=== PATIENT | male | born 1960 | race Caucasian/White ===

== ENCOUNTER 2016-09-03 18:09 | Inpatient (IN) | payer OTHER ==
[2016-09-03 18:40] VITALS: BMI 28.3
--- NOTE | 2016-09-03 19:13 | HP ---
CIWA Score - CIWA Score Nausea/Vomitin-Mild Nausea/No Vomiting Muscle Tremors: 4-Moderate,w/Arms Extend Anxiety: 4-Mod. Anxious/Guarded Agitation: 4-Moderately Restless Paroxysmal Sweats: 1-Minimal Palms Moist Orientation: 1-Uncertain about Date Tacttile Disturbances: 0-None Auditory Disturbances: 0-None Visual Disturbances: 0-None Headache: 1-Very Mild CIWA-Ar Total Score: 16 Admission ROS BHS - HPI Chief Complaint: WITHDRAWAL SX Allergies/Adverse Reactions: Allergies Allergy/AdvReac Type Severity Reaction Status Date / Time No Known Allergies Allergy Verified 09/03/16 19:22 History of Present Illness: 56 YEARS OLD MALE WITH LONG HISTORY OF ALCOHOL, NICOTINE HYPERTENSION DIABETES II SEIZURE AND DEPRESSION HISTORY OF SUICIDAL IDEATION IS ADMITTED TO DETOX Exam Limitations: No Limitations - Ebola screening Have you traveled outside of the country in the last 21 days: No Have you had contact with anyone from an Ebola affected area: No Have you been sick,other than usual withdrawal symptoms: No Do you have a fever: No - Review of Systems Constitutional: Chills, Changes in sleep, Weight Stable EENT: reports: No Symptoms Reported Respiratory: reports: Cough, SOB with Exertion Cardiac: reports: No Symptoms Reported GI: reports: Nausea, Poor Fluid Intake, Abdominal cramping : reports: No Symptoms Reported Musculoskeletal: reports: Joint Pain (RIGHT LEG) Integumentary: reports: No Symptoms Reported Neuro: reports: Seizure, Tremors Endocrine: reports: No Symptoms Reported Hematology: reports: No Symptoms Reported Psychiatric: reports: Judgement Intact, Depressed Other Systems: Reviewed and Negative Patient History - Patient Medical History Hx Anemia: No Hx Asthma: No Hx Chronic Obstructive Pulmonary Disease (COPD): No Hx Cancer: No Hx Cardiac Disorders: No Hx Congestive Heart Failure: No Hx Hypertension: Yes Hx Hypercholesterolemia: No Hx Pacemaker: No HX Cerebrovascular Accident: No Hx Seizures: Yes Hx Dementia: No Hx Diabetes: Yes Hx Gastrointestinal Disorders: No Hx Liver Disease: No Hx Genitourinary Disorders: No Hx Sexually Transmitted Disorders: No Hx Renal Disease (ESRD): No Hx Thyroid Disease: No Hx Human Immunodeficiency Virus (HIV): No Hx Hepatitis C: No Hx Depression: Yes Hx Suicide Attempt: Yes (2 WEEKS AGO, [place]) Hx Bipolar Disorder: No Hx Schizophrenia: No - Patient Surgical History Past Surgical History: Yes Hx Neurologic Surgery: No Hx Cataract Extraction: No Hx Cardiac Surgery: No Hx Lung Surgery: No Hx Breast Surgery: No Hx Breast Biopsy: No Hx Abdominal Surgery: Yes (LEFT HERNIA 1985) Hx Appendectomy: No Hx Cholecystectomy: No Hx Genitourinary Surgery: No Hx Orthopedic Surgery: Yes (1994 HANDS TENDEN CUT) Anesthesia Reaction: No - PPD History Previous Implant?: Yes Documented Results: Negative w/o proof Implanted On Prior [facility] Admission?: No PPD to be Administered?: Yes - Smoking Cessation Smoking history: Current every day smoker Have you smoked in the past 12 months: Yes Aproximately how many cigarettes per day: 10 Cigars Per Day: 0 Hx Chewing Tobacco Use: No Initiated information on smoking cessation: Yes 'Breaking Loose' booklet given: 09/03/16 - Substance & Tx. History Hx Alcohol Use: Yes Hx Substance Use: No Substance Use Type: Alcohol Hx Substance Use Treatment: Yes - Substances Abused Alcohol Route: Oral Frequency: Daily Amount used: [place] Age of first use: 42 Date of Last Use: 09/03/16 Family Disease History - Family Disease History Family Disease History: Heart Disease: Father (), CA: Mother () , Other: Father, Mother, Brother (HIV ), Sister (NO CONTACT) Admission Physical Exam BHS - Vital Signs Vital Signs: Vital Signs - 24 hr 09/03/16 18:29 Temperature 97.9 F Pulse Rate 95 H Respiratory 20 Rate Blood Pressure 152/67 - Physical General Appearance: Yes: Appropriately Dressed, Mild Distress, Alcohol on Breath , Tremorous, Irritable, Sweating, Anxious HEENTM: Yes: Hearing grossly Normal, Normal ENT Inspection, Normocephalic, Normal Voice Respiratory: Yes: Chest Non-Tender, No Respiratory Distress, No Accessory Muscle Use, Wheezing, Expiration Neck: Yes: Supple, Trachea in good position Breast: Yes: Breasts Symetrical Cardiology: Yes: Regular Rhythm, S1, S2, Tachycardia Abdominal: Yes: Non Tender, Soft Genitourinary: Yes: Within Normal Limits Back: Yes: Normal Inspection Musculoskeletal: Yes: Gait Steady, Back pain, Joint swelling, Muscle Pain ( RIGHT LEG) Extremities: Yes: Normal Inspection, Normal Range of Motion, Non-Tender, Tremors Neurological: Yes: Alert, Motor Strength 5/5, Normal Response, Depressed Affect Integumentary: Yes: Warm Lymphatic: Yes: Within Normal Limits - Diagnostic (1) Alcohol dependence with uncomplicated withdrawal Current Visit: Yes Status: Acute (2) Hypertension Current Visit: Yes Status: Chronic Qualifiers: Hypertension type: essential hypertension Qualified Code(s): I10 - Essential (primary) hypertension (3) Diabetes mellitus type II, controlled Current Visit: Yes Status: Chronic Qualifiers: Diabetes mellitus complication status: without complication Diabetes mellitus joint terminal attack controller insulin use: without custodial use Qualified Code(s): E11.9 - Type 2 diabetes mellitus without complications (4) Seizure Current Visit: Yes Status: Chronic (5) Brain tumor Current Visit: Yes Status: Chronic (6) Depression (emotion) Current Visit: Yes Status: Suspected Qualifiers: Depression Type: dysthymia Qualified Code(s): F34.1 - Dysthymic disorder Cleared for Admission BHS - Detox or Rehab [facility] Level of Care: Medically Managed Detox Regimen/Protocol: Librium S Breath Alcohol Content Breath Alcohol Content: 0.042
[2016-09-03] MEDS ORDERED: LOPERAMIDE HCL 2 MG CAPSULE PO PRN (19:36)
[2016-09-03] MEDS ORDERED: MAGNESIUM HYDROX 2400MG/30ML ORAL SUSPENSION 30 ML CUP PO PRN (19:36)
[2016-09-03] MEDS ORDERED: NICOTINE POLACRILEX 2 MG GUM BC PRN (19:36)
[2016-09-03] MEDS ORDERED: chlordiazePOXIDE HCL 25 MG CAPSULE PO PRN (19:36)
[2016-09-03] MEDS ORDERED: hydrOXYzine PAMOATE 50 MG CAPSULE (FP) PO PRN (19:36)
[2016-09-03] MEDS ORDERED: P-EPHED 60MG/TRIPROLIDI 2.5MG TABLET PO PRN (19:36)
[2016-09-03] MEDS ORDERED: guaiFENesin/D-METHORPHAN HB 10 ML UNIT-DOSE CUPS PO PRN (19:36)
[2016-09-03] MEDS ORDERED: chlordiazePOXIDE HCL 25 MG CAPSULE PO ONE (19:36)
[2016-09-03] MEDS ORDERED: ACETAMINOPHEN 325 MG TABLET (FP) PO PRN (19:36)
[2016-09-03] MEDS ORDERED: MAG HYDROX/AL HYDROX/SIMETH 30 ML UNIT-DOSE CUP PO PRN (19:36)
[2016-09-03] MEDS ORDERED: MENTHOL/PHENOL 1 EACH UD MM PRN (19:36)
[2016-09-03] MEDS ORDERED: IBUPROFEN 400 MG TABLET (FP) PO PRN (19:36)
[2016-09-03] MEDS ORDERED: MAGNESIUM CITRATE 300 ML BOTTLE PO PRN (19:36)
[2016-09-03] MEDS ORDERED: cloNIDine HCL 0.1 MG TABLET PO PRN (19:42)
[2016-09-03] MEDS: amLODIPine BESYLATE 5 MG TABLET (FP) PO SCH (21:03)
[2016-09-03] MEDS: THIAMINE HCL 100 MG TABLET (FP) PO SCH (22:05)
[2016-09-03] MEDS: chlordiazePOXIDE HCL 25 MG CAPSULE PO SCH (22:05)
[2016-09-03] MEDS: diphenhydrAMINE HCL 50 MG CAPSULE PO PRN (22:06)
[2016-09-03] MEDS: LABETALOL HCL 200 MG TABLET (FP) PO SCH (22:06)
[2016-09-04] MEDS: chlordiazePOXIDE HCL 25 MG CAPSULE PO SCH ×4 (05:38→22:02)
--- NOTE | 2016-09-04 09:35 | PN ---
S CIWA - CIWA Score Nausea/Vomitin-Mild Nausea/No Vomiting Muscle Tremors: 5 Anxiety: 4-Mod. Anxious/Guarded Agitation: 4-Moderately Restless Paroxysmal Sweats: 3 Orientation: 0-Oriented Tacttile Disturbances: 1-Very Mild Itch/Numbness Auditory Disturbances: 0-None Visual Disturbances: 0-None Headache: 0-None Present CIWA-Ar Total Score: 18 BHS Progress Note (SOAP) Subjective: Sweating,interrupted sleep,restless,gross tremors,anxiety. Objective: 09/04/16 09:34 Vital Signs - 8 hr 09/04/16 09/04/16 09/04/16 03:19 06:07 09:18 Temperature 98.3 F 96.1 F L Pulse Rate 100 H 82 84 Respiratory 18 18 Rate Blood Pressure 120/72 140/75 Assessment: 09/04/16 09:34 Withdrawal sx. Plan: Continue detox
[2016-09-04 10:02] LABS: CALCIUM 8.6 mg/dL (8.5-10.1)
[2016-09-04 10:06] LABS: ALBUMIN 3.5 g/dl (3.4-5.0); ALK PHOS 78 U/L (45-117); BILIRUBIN,TOTAL 0.8 mg/dL (0.2-1.0); COCKROFT - GAULT 162.53; CREATININE 0.7 mg/dL (0.7-1.3); GLUCOSE,RANDOM 155 mg/dL (74-106); SGOT/AST 51 U/L (15-37); SGPT/ALT 52 U/L (12-78); TOT PROT 6.4 g/dl (6.4-8.2)
[2016-09-04] MEDS: PRENATAL VITAMINS W/ FOLIC ACID TABLET (FP) PO SCH (10:07)
[2016-09-04] MEDS: amLODIPine BESYLATE 5 MG TABLET (FP) PO SCH (10:07)
[2016-09-04] MEDS: HYDROCHLOROTHIAZIDE 12.5 MG CAPSULE (FP) PO SCH (10:07)
[2016-09-04] MEDS: NICOTINE 14 MG/24 HOURS TOPICAL PATCH TD SCH (10:08)
--- NOTE | 2016-09-04 10:21 | CONSULT ---
[facility] Psychiatric Consult - Data Date of interview: 09/04/16 Admission source: [facility] Identifying data: Mr thurman is a 56 years old male, father of 3 children, unemployed, living with a friend seeking detox treatment for alcohol Substance Abuse History: Reports that he started drinking alcohol at age 42, consumes one pint of vodka daily. Last drink on 09/03/16. Smokes 10 cigarettes daily Medical History: Significant for HTN, type 2 DM, Alcohol-related seizure, Brain aneurysm diagnosed in 2010 and surgery for repair of tendon middle finger of right hand Physical/Sexual Abuse/Trauma History: Denies history of emotional, physical or sexual abuse as well as DV relationship Additional Comment: Reports history of 2-3 previous misdemeanor arrests for drinking on public Mental Status Exam - Mental Status Exam Alert and Oriented to: Time, Place ([facility]), Person Cognitive Function: Fair Patient Appearance: Disheveled Mood: Depressed Affect: Appropriate Patient Behavior: Cooperative Speech Pattern: Clear Voice Loudness: Normal Thought Process: Intact Hallucinations: Denies Suicidal Ideation: Denies Homicidal Ideation: Denies Insight/Judgement: Poor Sleep: Poorly Appetite: Good Muscle strength/Tone: Normal Gait/Station: Normal Psychiatric Findings - Problem List ([place] 1, 2,3) (1) Alcohol-induced mood disorder Current Visit: Yes Status: Acute (2) Alcohol-induced sleep disorder Current Visit: Yes Status: Acute (3) Alcohol dependence with uncomplicated withdrawal Current Visit: Yes Status: Acute (4) Nicotine dependence Current Visit: Yes Status: Acute (5) Brain tumor Current Visit: Yes Status: Chronic (6) Diabetes mellitus type II, controlled Current Visit: Yes Status: Chronic Qualifiers: Diabetes mellitus complication status: without complication Diabetes mellitus fdc insulin use: without fdc use Qualified Code(s): E11.9 - Type 2 diabetes mellitus without complications (7) Hypertension Current Visit: Yes Status: Chronic Qualifiers: Hypertension type: essential hypertension Qualified Code(s): I10 - Essential (primary) hypertension (8) Seizure Current Visit: Yes Status: Chronic - Initial Treatment Plan Initial Treatment Plan: 1) Start Ambuen 10 mg po HS prn for insomnia. Benefits vs risks of medication discussed with patient and he agreed to try it. 2) Continue inpatient detoxification
[2016-09-04 10:27] LABS: MCH 34.3 pg (25.7-33.7); MCHC 34.2 g/dl (32.0-35.9); MEAN CELL VOLUME 100.2 fl (80-96); MEAN PLT VOLUME 7.1 fl (7.5-11.1); PLATELET COUNT 144 K/MM3 (134-434); RDW 13.3 % (11.9-15.9); WHITE BLOOD COUNT 6.1 K/mm3 (4.0-10.0)
[2016-09-04] MEDS: LABETALOL HCL 200 MG TABLET (FP) PO SCH ×2 (11:24→22:02)
--- NOTE | 2016-09-04 11:37 | EKG ---
Test Reason : Blood Pressure : / mmHG Vent. Rate : 092 BPM Atrial Rate : 092 BPM P-R Int : 152 ms QRS Dur : 094 ms QT Int : 362 ms P-R-T Axes : 042 034 051 degrees QTc Int : 447 ms POOR DATA QUALITY, INTERPRETATION MAY BE ADVERSELY AFFECTED NORMAL SINUS RHYTHM NORMAL ECG NO PREVIOUS ECGS AVAILABLE Confirmed by ENA SOOD MD ([id number]) on 09/04/2016 11:37:04 AM Referred By: Mahesh Ibrahim Confirmed By:ENA SOOD MD
[2016-09-04 13:32] LABS: ANION GAP 9 (8-16); CO2 30 mmol/L (21-32)
[2016-09-04] MEDS ORDERED: chlordiazePOXIDE HCL 25 MG CAPSULE PO ONE (14:00)
[2016-09-04 15:22] LABS: URINE APPEARANCE CLEAR; URINE BILIRUBIN NEGATIVE (NEGATIVE); URINE BLOOD NEGATIVE (NEGATIVE); URINE COLOR AMBER; URINE GLUCOSE (UA) 3+ (NEGATIVE); URINE KETONE NEGATIVE (NEGATIVE); URINE LEUK ESTERASE NEGATIVE (NEGATIVE); URINE NITRITE NEGATIVE (NEGATIVE); URINE UROBILINOGEN 4.0 E.U/dl E.U./dl (0.2-1.0)
[2016-09-04 15:53] LABS: URINE PROTEIN 1+ (NEGATIVE)
[2016-09-04 16:09] LABS: URINE MUCUS MANY; URINE RBC 1 /hpf (0-3); URINE WBC 5 /hpf (3-5)
[2016-09-04] MEDS ORDERED: ZOLPIDEM TARTRATE 10 MG TABLET (PARK CARE ONLY) PO PRN (22:00)
[2016-09-04] MEDS: THIAMINE HCL 100 MG TABLET (FP) PO SCH (22:02)
[2016-09-05] MEDS: chlordiazePOXIDE HCL 25 MG CAPSULE PO SCH ×3 (05:25→17:21)
[2016-09-05] MEDS: PRENATAL VITAMINS W/ FOLIC ACID TABLET (FP) PO SCH (10:07)
[2016-09-05] MEDS: HYDROCHLOROTHIAZIDE 12.5 MG CAPSULE (FP) PO SCH (10:07)
[2016-09-05] MEDS: LABETALOL HCL 200 MG TABLET (FP) PO SCH ×2 (10:07→22:10)
[2016-09-05] MEDS: amLODIPine BESYLATE 5 MG TABLET (FP) PO SCH (10:07)
[2016-09-05] MEDS: NICOTINE 14 MG/24 HOURS TOPICAL PATCH TD SCH (10:07)
--- NOTE | 2016-09-05 11:25 | PN ---
S CIWA - CIWA Score Nausea/Vomitin-Mild Nausea/No Vomiting Muscle Tremors: 4-Moderate,w/Arms Extend Anxiety: 4-Mod. Anxious/Guarded Agitation: 4-Moderately Restless Paroxysmal Sweats: 3 Orientation: 0-Oriented Tacttile Disturbances: 0-None Auditory Disturbances: 0-None Visual Disturbances: 0-None Headache: 0-None Present CIWA-Ar Total Score: 16 BHS Progress Note (SOAP) Subjective: Sweating,anxiety,tremors,interrupted sleep,restless Objective: 09/05/16 11:21 Vital Signs - 8 hr 09/05/16 09/05/16 09/05/16 03:29 06:10 09:35 Temperature 97 F L 96.8 F L Pulse Rate 80 84 Respiratory 18 18 18 Rate Blood Pressure 131/73 123/80 Laboratory Tests 09/04/16 09/04/16 09/04/16 07:00 07:00 07:00 WBC 6.1 RBC 3.55 L Hgb 12.2 Hct 35.6 MCV 100.2 H MCHC 34.2 RDW 13.3 Plt Count 144 MPV 7.1 L Sodium 141 Potassium 3.5 Chloride 102 Carbon Dioxide 30 Anion Gap 9 BUN 12 Creatinine 0.7 Creat Clearance w eGFR > 60 Random Glucose 155 H Calcium 8.6 Total Bilirubin 0.8 AST 51 H ALT 52 Alkaline Phosphatase 78 Total Protein 6.4 Albumin 3.5 Urine Color Urine Appearance Urine pH Ur Specific [place] Urine Protein Urine Glucose (UA) Urine Ketones Urine Blood Urine Nitrite Urine Bilirubin Urine Urobilinogen Ur Leukocyte Esterase Urine RBC Urine WBC Urine Mucus RPR Titer Nonreactive 09/04/16 09:50 WBC RBC Hgb Hct MCV MCHC RDW Plt Count MPV Sodium Potassium Chloride Carbon Dioxide Anion Gap BUN Creatinine Creat Clearance w eGFR Random Glucose Calcium Total Bilirubin AST ALT Alkaline Phosphatase Total Protein Albumin Urine Color [place] Urine Appearance Clear Urine pH 6.0 Ur Specific [place] 1.020 Urine Protein 1+ H Urine Glucose (UA) 3+ H Urine Ketones Negative Urine Blood Negative Urine Nitrite Negative Urine Bilirubin Negative Urine Urobilinogen 4.0 e.u/dl Ur Leukocyte Esterase Negative Urine RBC 1 Urine WBC 5 Urine Mucus Many RPR Titer labs noted,no need to repeat u/a Assessment: 09/05/16 11:25 Withdrawal sx. Plan: Continue detox
[2016-09-05] MEDS: diphenhydrAMINE HCL 50 MG CAPSULE PO PRN (22:11)
[2016-09-05] MEDS: THIAMINE HCL 100 MG TABLET (FP) PO SCH (22:11)
[2016-09-05] MEDS: chlordiazePOXIDE 5 MG CAPSULE PO SCH (22:11)
[2016-09-06] MEDS: chlordiazePOXIDE 5 MG CAPSULE PO SCH ×3 (06:41→17:45)
[2016-09-06] MEDS: LABETALOL HCL 200 MG TABLET (FP) PO SCH ×2 (10:02→22:03)
[2016-09-06] MEDS: PRENATAL VITAMINS W/ FOLIC ACID TABLET (FP) PO SCH (10:02)
[2016-09-06] MEDS: amLODIPine BESYLATE 5 MG TABLET (FP) PO SCH (10:02)
[2016-09-06] MEDS: HYDROCHLOROTHIAZIDE 12.5 MG CAPSULE (FP) PO SCH (10:02)
[2016-09-06] MEDS: NICOTINE 14 MG/24 HOURS TOPICAL PATCH TD SCH (10:02)
[2016-09-06] MEDS ORDERED: IBUPROFEN 600 MG TABLET (FP) PO PRN (12:44)
[2016-09-06] MEDS: METHYL SALICYLATE/MENTHOL OINT 30 GM TUBE TP SCH ×2 (14:47→22:02)
--- NOTE | 2016-09-06 15:00 | PN ---
BHS Progress Note (SOAP) Subjective: Interrupted Sleep, Tremors, Sweating. Objective: PT. A & O X 2 (DISORIENTED ABOUT DAY/DATE). PT. OBSERVED AMBULATING ON UNIT. 09/06/16 14:57 Vital Signs Temperature 97.3 F L 09/06/16 12:58 Pulse Rate 81 09/06/16 12:58 Respiratory Rate 18 09/06/16 12:58 Blood Pressure 114/66 09/06/16 12:58 O2 Sat by Pulse Oximetry (%) Laboratory Last Values WBC 6.1 K/mm3 (4.0-10.0) 09/04/16 07:00 RBC 3.55 M/mm3 (4.00-5.60) L 09/04/16 07:00 Hgb 12.2 GM/dL (11.7-16.9) 09/04/16 07:00 Hct 35.6 % (35.4-49) 09/04/16 07:00 MCV 100.2 fl (80-96) H 09/04/16 07:00 MCHC 34.2 g/dl (32.0-35.9) 09/04/16 07:00 RDW 13.3 % (11.9-15.9) 09/04/16 07:00 Plt Count 144 K/MM3 (134-434) 09/04/16 07:00 MPV 7.1 fl (7.5-11.1) L 09/04/16 07:00 Sodium 141 mmol/L (136-145) 09/04/16 07:00 Potassium 3.5 mmol/L (3.5-5.1) 09/04/16 07:00 Chloride 102 mmol/L (98-107) 09/04/16 07:00 Carbon Dioxide 30 mmol/L (21-32) 09/04/16 07:00 Anion Gap 9 (8-16) 09/04/16 07:00 BUN 12 mg/dL (7-18) 09/04/16 07:00 Creatinine 0.7 mg/dL (0.7-1.3) 09/04/16 07:00 Creat Clearance w eGFR > 60 (>60) 09/04/16 07:00 Random Glucose 155 mg/dL (74-106) H 09/04/16 07:00 Calcium 8.6 mg/dL (8.5-10.1) 09/04/16 07:00 Total Bilirubin 0.8 mg/dL (0.2-1.0) 09/04/16 07:00 AST 51 U/L (15-37) H 09/04/16 07:00 ALT 52 U/L (12-78) 09/04/16 07:00 Alkaline Phosphatase 78 U/L (45-117) 09/04/16 07:00 Total Protein 6.4 g/dl (6.4-8.2) 09/04/16 07:00 Albumin 3.5 g/dl (3.4-5.0) 09/04/16 07:00 Urine Color [place] 09/04/16 09:50 Urine Appearance Clear 09/04/16 09:50 Urine pH 6.0 (5.0-8.0) 09/04/16 09:50 Ur Specific Normal 1.020 (1.005-1.025) 09/04/16 09:50 Urine Protein 1+ (NEGATIVE) H 09/04/16 09:50 Urine Glucose (UA) 3+ (NEGATIVE) H 09/04/16 09:50 Urine Ketones Negative (NEGATIVE) 09/04/16 09:50 Urine Blood Negative (NEGATIVE) 09/04/16 09:50 Urine Nitrite Negative (NEGATIVE) 09/04/16 09:50 Urine Bilirubin Negative (NEGATIVE) 09/04/16 09:50 Urine Urobilinogen 4.0 e.u/dl E.U./dl (0.2-1.0) 09/04/16 09:50 Ur Leukocyte Esterase Negative (NEGATIVE) 09/04/16 09:50 Urine RBC 1 /hpf (0-3) 09/04/16 09:50 Urine WBC 5 /hpf (3-5) 09/04/16 09:50 Urine Mucus Many 09/04/16 09:50 RPR Titer Nonreactive (NONREACTIVE) 09/04/16 07:00 LABS NOTED. Assessment: 09/06/16 14:58 WITHDRAWAL SYMPTOMS. Plan: CONTINUE DETOX. ADVISED PATIENT TO FOLLOW-UP WITH [facility] MA[employer] AFTER DISCHARGE FROM DETOX FOR GENERAL MEDICAL ASSESSMENT AND FOR HISTORY OF DIABETES.
[2016-09-06] MEDS: chlordiazePOXIDE HCL 10 MG CAPSULE PO SCH (22:02)
[2016-09-06] MEDS: THIAMINE HCL 100 MG TABLET (FP) PO SCH (22:02)
[2016-09-06] MEDS: diphenhydrAMINE HCL 50 MG CAPSULE PO PRN (22:03)
[2016-09-07] MEDS: chlordiazePOXIDE HCL 10 MG CAPSULE PO SCH (05:50)
[2016-09-07 09:04] VITALS: BP 140/75; PULSE 78; TEMP 97
[2016-09-07] MEDS ORDERED: metFORMIN HCL 500 MG TABLET (FP) PO ONE (09:45)
[2016-09-07] MEDS ORDERED: INSULIN SLIDING SCALE (NOVOLOG) 1 VIAL SQ SCH (11:00)
--- NOTE | 2016-09-07 12:41 | DS ---
[facility] Detox Discharge Summary Admission Date: 09/03/16 Discharge Date: 09/07/16 - History Present History: Alcohol Dependence Pertinent Past History: DMT2 HTN Seizure disorder - Physical Exam Results Vital Signs: Vital Signs Temperature 97.0 F L 09/07/16 09:03 Pulse Rate 78 09/07/16 09:03 Respiratory Rate 18 09/07/16 09:03 Blood Pressure 140/75 09/07/16 09:03 O2 Sat by Pulse Oximetry (%) Pertinent Admission Physical Exam Findings: Withdrawal symptoms Laboratory Tests 09/04/16 09/04/16 09/04/16 07:00 07:00 07:00 WBC 6.1 RBC 3.55 L Hgb 12.2 Hct 35.6 MCV 100.2 H MCHC 34.2 RDW 13.3 Plt Count 144 MPV 7.1 L Sodium 141 Potassium 3.5 Chloride 102 Carbon Dioxide 30 Anion Gap 9 BUN 12 Creatinine 0.7 Creat Clearance w eGFR > 60 POC Glucometer Random Glucose 155 H Calcium 8.6 Total Bilirubin 0.8 AST 51 H ALT 52 Alkaline Phosphatase 78 Total Protein 6.4 Albumin 3.5 Urine Color Urine Appearance Urine pH Ur Specific [place] Urine Protein Urine Glucose (UA) Urine Ketones Urine Blood Urine Nitrite Urine Bilirubin Urine Urobilinogen Ur Leukocyte Esterase Urine RBC Urine WBC Urine Mucus RPR Titer Nonreactive 09/04/16 09/07/16 09:50 05:49 WBC RBC Hgb Hct MCV MCHC RDW Plt Count MPV Sodium Potassium Chloride Carbon Dioxide Anion Gap BUN Creatinine Creat Clearance w eGFR POC Glucometer 168 Random Glucose Calcium Total Bilirubin AST ALT Alkaline Phosphatase Total Protein Albumin Urine Color [place] Urine Appearance Clear Urine pH 6.0 Ur Specific [place] 1.020 Urine Protein 1+ H Urine Glucose (UA) 3+ H Urine Ketones Negative Urine Blood Negative Urine Nitrite Negative Urine Bilirubin Negative Urine Urobilinogen 4.0 e.u/dl Ur Leukocyte Esterase Negative Urine RBC 1 Urine WBC 5 Urine Mucus Many RPR Titer Labs noted: UA 3+, 1+ protein; serum glucose 155, FS 168 Glycosuria and hyperglycemia secondary to DMT2: educated on importance of lifestyle modification (diet and exercise as tolerated to lose weight and decreasing sugar in diet), started on metformin 500mg PO BID (patient stated Rx can be sent to [facility] at [address] [place] [address] [address] [place] but he doesn't have the contact information, encouraged to call medicaid and request a PCP as he denies having a PCP. Patient insisted to leave AMA despite education on importance of completing detox etc. - Medication Discharge Medications: Ambulatory Orders NK [No Known Home Medication] 09/03/16 - Diagnosis (1) Alcohol dependence with uncomplicated withdrawal Status: Acute (2) Nicotine dependence Status: Chronic (3) Diabetes mellitus type II, controlled Status: Chronic Qualifiers: Diabetes mellitus complication status: without complication Diabetes mellitus correction insulin use: without truck terminal manager use Qualified Code(s): E11.9 - Type 2 diabetes mellitus without complications (4) Hypertension Status: Chronic Qualifiers: Hypertension type: essential hypertension Qualified Code(s): I10 - Essential (primary) hypertension (5) Seizure Status: Chronic (6) Depression (emotion) Status: Chronic Qualifiers: Depression Type: dysthymia Qualified Code(s): F34.1 - Dysthymic disorder - AMA Did Patient Leave Against Medical Advice: Yes
[2016-09-07] MEDS ORDERED: metFORMIN HCL 500 MG TABLET (FP) PO SCH (16:30)
== END 2016-09-07 11:19 | disposition left against medical advice (07) | DRG 770 ==
LOC: YASAS 18:09 → Y3N 20:26
PROVIDERS: ADMIT Internal Medicine Addiction Medicine; ATTEND Internal Medicine Addiction Medicine
PROC: HZ2ZZZZ Detoxification Services for Substance Abuse Treatment (ICD-10-PCS; principal; 2016-09-03)
DX: F10.230 Alcohol dependence with withdrawal, uncomplicated (principal); F10.24 Alcohol dependence with alcohol-induced mood disorder; F10.282 Alcohol dependence with alcohol-induced sleep disorder; F17.210 Nicotine dependence, cigarettes, uncomplicated; F34.1 Dysthymic disorder; E11.9 Type 2 diabetes mellitus without complications; I10 Essential (primary) hypertension; G40.909 Epilepsy, unspecified, not intractable, without status epilepticus; R00.0 Tachycardia, unspecified; D49.6 Neoplasm of unspecified behavior of brain; Z91.5 Personal history of self-harm; Z59.0 Homelessness
CPT/HCPCS: 36415; 80053; 81003; 81015; 85027; 86593; 93005; 93010